=== PATIENT | female | born 1975 | race Caucasian/White ===

== ENCOUNTER → 2016-11-21 | Outpatient (CLI) | payer OTHER ==
--- NOTE | 2016-11-21 18:22 | DX ---
PA and Lateral Chest November 21, 2016 Indication: Hemoptysis for two years. Comparison: None. Findings: A 6-mm nodular asymmetry projects over the anterior left 4th rib and the periphery of the left mid lung. A 2- x 2-mm thin-walled cavitary lesion versus pleuroparenchymal scarring resides at the right lung apex. The lungs are otherwise clear, and the heart size is normal. No pleural effusi on. Impressions 1. Questionable left midlung pulmonary nodule and right apical cavitary lesion versus pleuroparenchy mal scarring. Recommend CT chest, with IV contrast, to further characterize. 2. No acute process. Comment: I reviewed the case with Dr. Anson [place] who agrees with the Findings and the Recommenda tions. A Follow-Up Required message has been communicated to Shady Delacruz MD via the [employer] Critical Result system on 11/21/2016 18:04, Message ID [id number].
== END ==
LOC: FIMAGING 16:18
PROVIDERS: ATTEND Internal Medicine
DX: R91.8 Other nonspecific abnormal finding of lung field (principal); R04.2 Hemoptysis

== ENCOUNTER → 2016-11-27 | Outpatient (CLI) | payer OTHER ==
[~2016-11-27] MED LIST: IOPAMIDOL (ISOVUE-300) 100 ML BTL IV ONE
--- NOTE | 2016-11-27 16:46 | CT ---
Contrast Enhanced CT Scan of the Chest Clinical History: 41-year-old female who has had hemoptysis for 2 years, and was noted to have a righ t apical cavitary lesion and a questionable left midlung pulmonary nodule on recent chest radiography . The patient is not a smoker. ICD 10 Diagnostic Code: R93.8. Technique: Following the uneventful intravenous administration of 90 mL of Isovue-300, standard helic al CT imaging of the chest was obtained utilizing 5.00 mm collimated slices through the thorax, and r eformatted at 1.25 mm increments. Multiplanar reconstructions are reviewed. Dose reduction technique s were utilized. The DFOV is 31.3 cm Comparison Study: Chest radiography, dated November 21, 2016. Findings: In the medial apical segment of the right upper lobe, there is an irregularly-marginated ca vitary lesion with extension to the medial pleural surface, measuring 2.5 x 2.7 cm (transaxial diamet er) x 3.6 cm (cephalocaudal diameter). Differential considerations would include a malignancy such as a squamous cell carcinoma (versus a cavitary pulmonary metastasis), an infection such as pulmonary t uberculosis (what is the patient's PPD status?), coccidioidomycoses, or cryptococcosis, or a cavitary pneumonia. This appearance can also be seen in a noninfectious granulomatosis with polyangiitis. Bec ause this is not a thin-walled cavity, a pneumatocele is not considered likely. With respect to the left midlung, there is no pulmonary or pleural-based nodule. There is no pleural effusion. There is no axillary, supraclavicular, or intrathoracic adenopathy. The visualized upper ab domen is within normal limits (given the arterial phase of contrast enhancement). The central pulmona ry segments are contrast-opacified. The thoracic aortic contour is normal. The cardiac chambers are n ormal. There is no pericardial effusion. There is a tiny hiatal hernia. The osseous structures are ag e-appropriate, with no lytic or blastic lesion. The subcutaneous tissues are normal. The visualized p ortions of the thyroid gland are unremarkable. Impression: There is a 2.5 x 2.7 x 3.6 cm irregularly-marginated cavitary lesion in the medial portio n of the apical segment of the right upper lobe. The two chief diagnostic considerations would includ e malignancy (such as a squamous cell carcinoma) or an infection (such as pulmonary tuberculosis). Pl ease see the above other differential considerations. Pulmonology consultation is recommended.
== END ==
LOC: FIMAGING 14:21
PROVIDERS: ATTEND Internal Medicine
DX: R91.8 Other nonspecific abnormal finding of lung field (principal); R04.2 Hemoptysis
CPT/HCPCS: Q9967

== ENCOUNTER → 2017-05-09 | Outpatient (CLI) | payer OTHER | LOC: FIMAGING 10:01 | PROVIDERS: ATTEND Internal Medicine Infectious Disease | DX: B38.1 Chronic pulmonary coccidioidomycosis (principal) ==

== ENCOUNTER → 2017-08-15 | Outpatient (CLI) | payer OTHER | LOC: FLAB 15:30 | PROVIDERS: ATTEND Internal Medicine Infectious Disease | DX: B38.1 Chronic pulmonary coccidioidomycosis (principal) ==

== ENCOUNTER → 2018-02-09 | Outpatient (CLI) | payer OTHER | LOC: FIMAGING 12:53 | PROVIDERS: ATTEND Internal Medicine Infectious Disease | DX: R91.8 Other nonspecific abnormal finding of lung field (principal); B38.1 Chronic pulmonary coccidioidomycosis ==

== ENCOUNTER → 2018-03-04 | Outpatient (CLI) | payer OTHER ==
[~2018-03-04] MED LIST changes: +IOPAMIDOL (ISOVUE 370) 100 ML BTL IV ONE; -IOPAMIDOL (ISOVUE-300) 100 ML BTL IV ONE
== END ==
LOC: FIMAGING 16:10
PROVIDERS: ATTEND Internal Medicine Infectious Disease
DX: R91.8 Other nonspecific abnormal finding of lung field (principal)
CPT/HCPCS: Q9967

== ENCOUNTER → 2019-04-10 | Outpatient (CLI) | payer OTHER | LOC: FIMAGING 12:26 ==